=== PATIENT | male | born 1990 | race Caucasian/White ===

== ENCOUNTER 2017-02-10 12:23 | Emergency (ER) | payer SELFPAY ==
[~2017-02-10] VITALS: Ht 177.8 cm; Wt 100.7 kg
[2017-02-10 12:37] VITALS: BP 111/79
[2017-02-10] MEDS ORDERED: LIDOCAINE 1%, 20ML SQ ONE (13:00)
[2017-02-10] MEDS ORDERED: DIPH,PERTUSS(ACELL),TET VAC/PF 0.5 ML IM-VACC ONE ×2 (13:00→13:20)
[2017-02-10] MEDS ORDERED: LIDOCAINE 1%, 20ML ONE (13:20)
== END 2017-02-10 14:15 | disposition home or self-care (01) ==
LOC: ED 14:09
DX: S61.214A Laceration without foreign body of right ring finger without damage to nail, initial encounter (principal); X58.XXXA Exposure to other specified factors, initial encounter; Y93.56 Activity, jumping rope; Y92.89 Other specified places as the place of occurrence of the external cause; Y99.9 Unspecified external cause status
CPT/HCPCS: 12001; 90471; 90715

== ENCOUNTER 2020-09-10 19:53 | Emergency (ER) | payer OTHER ==
[~2020-09-10] VITALS: Ht 177.8 cm; Wt 94.0 kg
--- NOTE | 2020-09-10 20:04 | NUR ---
PET SITTER: EKG PERFORMED IN TRIAGE AT THIS TIME.
--- NOTE | 2020-09-10 21:07 | NUR ---
VAN LOADER: PT. TO ROOM FROM LOBBY AT THIS TIME.
--- NOTE | 2020-09-10 21:45 | NUR ---
Patient comes in with complaints of arms feeling numb and tingling. Mostly right arm. States he doesn have anxiety unsure if that is what is going on. VSS, Call light within reach. Placed on compliance monitor.
[2020-09-10 21:52] LABS: BASOPHILS % (AUTO) 0 % (0-1); EOSINOPHILS % (AUTO) 1 % (1-7); LYMPHOCYTES % (AUTO) 33 % (22-44); MEAN CORPUSCULAR HEMOGLOBIN 32.5 pg (27.5-34.5); MEAN CORPUSCULAR HGB CONC 34.5 g/dL (33.2-36.2); MEAN PLATELET VOLUME 8.7 fL (7.4-10.4); MONOCYTES % (AUTO) 10 % (2-9); NEUTROPHILS % (AUTO) 56 % (42-75); PLATELET COUNT 232 x10^3/uL (130-400); RED BLOOD COUNT 5.48 x10^6/uL (4.38-5.82); RED CELL DISTRIBUTION WIDTH 12.8 % (9.4-14.8)
[2020-09-10 21:56] LABS: MD NO
[2020-09-10 21:58] LABS: MICROSCOPIC NOT IND
[2020-09-10 22:21] LABS: ALANINE AMINOTRANSFERASE 32 U/L (12-78); ALKALINE PHOSPHATASE 83 U/L (45-117); ANION GAP 6 mmol/L (5-15); BILIRUBIN,TOTAL 0.8 mg/dL (0.2-1.0); CALCIUM 9.4 mg/dL (8.5-10.1); CHLORIDE 107 mmol/L (98-107); CREATININE 1.11 mg/dL (0.7-1.3); TOTAL PROTEIN 7.9 g/dL (6.4-8.2)
[2020-09-11 01:05] VITALS: BP 129/81
== END 2020-09-11 01:07 | disposition home or self-care (01) ==
LOC: ED 21:55
DX: K29.00 Acute gastritis without bleeding (principal); R10.11 Right upper quadrant pain; R10.13 Epigastric pain; R20.2 Paresthesia of skin; R94.31 Abnormal electrocardiogram [ECG] [EKG]; K21.9 Gastro-esophageal reflux disease without esophagitis
CPT/HCPCS: 36415; 71045; 76700; 80053; 81003; 82803; 83690; 85025; 93005; 99285